=== PATIENT | male | born 1995 | race African-American/Black ===

== ENCOUNTER 2020-10-28 12:00 | Emergency (ER) | payer OTHER ==
[~2020-10-28] VITALS: Ht 182.9 cm; Wt 74.8 kg
[2020-10-28 12:21] VITALS: BP_SYST 138
[2020-10-28] MEDS ORDERED: LIDOCAINE 1%, 20 ML MDV 20 ML ONE (12:53)
[2020-10-28] MEDS ORDERED: LIDOCAINE 1% 10 MG/ML, 20 ML MDV INJ ONE (13:00)
[2020-10-28 13:55] VITALS: BP_SYST 138
== END 2020-10-28 13:55 | disposition home or self-care (01) ==
LOC: SED 12:00
DX: S61.215A Laceration without foreign body of left ring finger without damage to nail, initial encounter (principal); W26.8XXA Contact with other sharp object(s), not elsewhere classified, initial encounter; Y93.89 Activity, other specified; Y92.89 Other specified places as the place of occurrence of the external cause; Y99.8 Other external cause status
CPT/HCPCS: 12002; 99283; J2001